=== PATIENT | male | born 1950 | race Caucasian/White ===

== ENCOUNTER 2016-11-23 10:10 | Emergency (ER) | payer MEDICAID, MEDICARE ==
[~2016-11-23] VITALS: Wt 78.0 kg
[~2016-11-23 10:10] MED LIST: COU2 PO; FOLI-49 PO; LEVE-5 PO; MAGN400T28 PO; MELA3TAB17 PO; METO25TA7 PO
[2016-11-23] MEDS ORDERED: ONDANSETRON (ODT) 4 MG TAB ODT STA (10:48)
[2016-11-23] MEDS ORDERED: HYDROCODONE/APAP (5/325) TAB PO ONE ×2 (11:00→15:30)
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
[2016-11-23] MEDS ORDERED: HYDR-906 PO (15:46)
[2016-11-23] MEDS ORDERED: ONDA4TAB8 PO (15:46)
[2016-11-23] MEDS ORDERED: NAPR-260 PO (15:47)
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
== END 2016-11-23 16:37 | disposition home or self-care (01) ==
LOC: FTE 10:10
DX: S29.9XXA Unspecified injury of thorax, initial encounter (principal); I10 Essential (primary) hypertension; Y08.89XA Assault by other specified means, initial encounter; Z79.01 Long term (current) use of anticoagulants
CPT/HCPCS: 71010; 71100; 72100; 74000